=== PATIENT | male | born 1975 | race Caucasian/White ===

== ENCOUNTER 2020-06-20 10:52 | Emergency (ER) | payer MEDICAID, SELFPAY ==
[2020-06-20 10:53] VITALS: BP 131/92; PULSE 97; RESP 18; TEMP 36.4; O2SAT 94; BMI 23.1
--- NOTE | 2020-06-20 10:56 | ED.VIS.GEN ---
History of Present Illness Chief Complaint: Allergic Reaction Informant: Patient Onset: Today Context: Sudden Onset Timing: Continuous Current Severity: Moderate Maximum Severity: Moderate Narrative: Patient is a 45-year-old male that presents to the emergency department after bee sting. States he is allergic to bees. He was stung on the right hand prior to arrival. He states that he tried to take Benadryl, but then vomited. He is unsure if he Kept any down. He does describe some itching. He is also been having mild nausea. He denies any shortness of breath. He states he is otherwise been in his normal state of health. He takes no daily medications. Prior similar symptoms: No Recent Illness/Hospitalization: No Past Medical History - Allergies and Home Meds Allergies/Adverse Reactions: Allergies sulfamethoxazole [From Bactrim] Adverse Reaction (Verified 06/20/20 10:57) Itching trimethoprim [From Bactrim] Adverse Reaction (Verified 06/20/20 10:57) Itching Prior records reviewed: Yes Past Medical History: None Surgical History: noncontributory Review of Systems General: Denies: Chills, Fever, Sweats Eyes: Denies: Visual changes - bilaterally, Diplopia ENT: Denies: Rhinorrhea, Sore throat Cardiovascular: Denies: Chest pain, Palpitations Respiratory: Denies: Dyspnea, Cough, Dyspnea on exertion Gastrointestinal: Reports: Nausea, Vomiting Genitourinary: Denies: Dysuria, Hematuria, Frequency Musculoskeletal: Denies: Back pain, Extremity Pain Skin: Reports: Rash Neurological: Denies: Headache, Weakness, Numbness Physical Exam Vital Signs/Narrative: Vital Signs Temp Pulse Resp BP Pulse Ox 06/20/20 10:53 97.5 F L 97 18 131/92 H 94 Inital Vital Signs reviewed: Yes General: Well nourished, Well developed, No Acute Distress Head: Normocephalic, Atraumatic Eyes: Perrl, EOMI ENT: Moist mucous membranes, No rhinorrhea Neck: Supple, Nontender Cardiovascular: Regular rate, Regular rhythm, No murmurs Respiratory: No distress, CTA bilaterally, Chest nontender Abdomen: Soft, Nontender, Nondistended, Normal bowel sounds Back: Nontender, Normal Inspection Extremities: Nontender, No edema Skin: Normal color, Rash Neurological: Alert, Oriented x3, Cranial nerves II-XII grossly intact, Normal Strength, Normal Sensation Psychological: Normal affect, Normal Mood Diagnostic/Tx/Re-eval - Medical Decision Making The patient presents with allergic reaction. He does have localized urticaria of the. He has no evidence of true anaphylaxis. His posterior oropharynx is widely patent. IV was established. Patient is given Solu-Medrol, Pepcid, and Benadryl. He states he does not want to wait in the hospital. I told him that there is concern for delayed reaction. He still wants to leave. I am going to place the patient on prednisone and an EpiPen. Impression 1. Allergic reaction to bee sting ED Disposition - Plan for ED Patient: Instructions: ED BEE STING General Allergic Rxn Prescriptions: Prednisone [Deltasone] 60 mg PO DAILY #15 tab Prescription Printed Epinephrine [Epipen] 0.3 mg IM X1 #2 auto.[email or web address] Prescription Printed
[2020-06-20] MEDS: DiphenhydrAMINE 50 MG/ML Syringe IV (11:08)
[2020-06-20] MEDS: MethylPREDNISolone 125 MG/2 ML Vial IV (11:08)
[2020-06-20] MEDS: Famotidine 200 MG/20 ML MDV 20 MG in 0.9% Normal Saline (Pres. free 8 ML 300 MG IV (11:51)
[2020-06-20 11:54] VITALS: BP 134/94; PULSE 94; RESP 18; O2SAT 97
--- NOTE | 2020-06-22 12:14 | CASEMGMT ---
Notification received re: need for prior authorization for epinephrine pen. Contacted Pt's preferred pharmacy [facility] in [place] [address] Verified with their staff that prior auth is needed and phone number obtained for [employer] to proceed with process. Call placed to [facility] with transfer to the [employer] team. Required information provided to Terrell and prior authorization submitted as urgent. Confirmation #[id number]. Per Terrell, response should be received via fax within 12-24 hours. Will follow for determination and coordinate with patient. Dante Vogel RN CM.
--- NOTE | 2020-06-22 12:15 | CM.ED ---
SOCIAL WORK Updated by patient this morning, needing prior auth for Epinephrine pen. Dante Obregon assisting with obtaining prior auth. Patient updated via phone call that at this time we are awaiting authorization from insurance and process could take 12-24 hours. Patient verbalized understanding and thanked staff for assisting as he does not have a PCP. Discussed importance of follow up with medical care and asked if patient would like assistance in finding a PCP. Patient reports, I'm pretty healthy and declined assistance. Informed patient this worker will call once a determination for authorization has been received. Yusuf Burris, SENIOR DRUPAL DEVELOPER, CHILD AND ADOLESCENT PSYCHIATRIST
== END 2020-06-20 11:57 | disposition home or self-care (01) ==
LOC: ED 11:47
PROVIDERS: Emergency Provider Emergency Medicine
DX: T63.441A Toxic effect of venom of bees, accidental (unintentional), initial encounter (principal); L50.9 Urticaria, unspecified; R11.2 Nausea with vomiting, unspecified; Y92.9 Unspecified place or not applicable; Z88.2 Allergy status to sulfonamides; Z88.1 Allergy status to other antibiotic agents
CPT/HCPCS: 96374; 96375; 99284; A4216; J3490